=== PATIENT | female | born 1970 | race Caucasian/White ===

== ENCOUNTER 2019-02-21 09:12 | Emergency (ER) | payer OTHER ==
[2019-02-21 09:20] VITALS: BP 139/96; PULSE 86; TEMP 98.1; BMI 26.6
--- NOTE | 2019-02-21 09:24 | PDOC ---
Attending Attestation - Resident Resident Name: Jackelin Jain - ED Attending Attestation I have performed the following: I have examined & evaluated the patient, The case was reviewed & discussed with the resident, I agree w/resident's findings & plan, Exceptions are as noted - HPI HPI: 02/21/19 09:20 49 year old female c/ hx of hypothyroidism p/w left ankle twisting. Pt was walking in high heels yesterday. Accidentally inverted her left ankle. Was ambulatory afterwards. However, this morning, left ankle was more painful and swollen. Denies numbness, weakness. Came into ED with antalgic gait. - Physicial Exam PE: 02/21/19 09:21 GENERAL: Awake, alert, and fully oriented, in no acute distress HEAD: No signs of trauma EYES: EOMI, sclera anicteric, conjunctiva clear ENT: Auricles normal inspection, hearing grossly normal, nares patent, Moist mucosa NECK: Normal ROM, supple EXTREMITIES: LUE: No tenderness elicited along the left calf, tibia-fibula Compartments soft. Edema and swelling noted to left lateral malleolus. No joint instability appreciated. Able to range but with pain. No tenderness at the feet. 2+ DP pulse. Sensation intact throughout the lower extremity. Able to wiggle toes. NEUROLOGICAL: Cranial nerves II through XII grossly intact. Normal speech, normal gait SKIN: Warm, Dry, normal turgor, no rashes or lesions noted. - Medical Decision Making 02/21/19 09:24 Vital Signs Temp Pulse Resp BP Pulse Ox 98.1 F 86 18 139/96 100 02/21/19 09:12 02/21/19 09:12 02/21/19 09:12 02/21/19 09:12 02/21/19 09:12 Impression: Left ankle sprain. However, obtain xray to r/o fracture. Elevation, ICE, JENN Wrap. If no fracture but persistent pain > 1 week, follow up outpatient with orthopedics. 02/21/19 09:51 Ankle xray reviewed by me, pending official read. No fracture. RICE therapy. Give crutches. Outpatient management.
--- NOTE | 2019-02-21 09:24 | PDOC ---
History of Present Illness - General Chief Complaint: Injury Stated Complaint: LEFT ANKLE INJURY Time Seen by Provider: 02/21/19 09:15 - History of Present Illness Initial Comments: 49 year old female with PMH of hypothyroidism presenting with left ankle pain after a mechanical trip and fall yesterday. States that she was walking down the stairs yesterday and tripped, inverting her ankle but did not fall. States that she was able to walk on it with minor difficulty but it has become more swollen and painful since then. She zhang not iced it or used any over the counter analgesics. She is able to walk on it currently with moderate pain on ambulation. Denies fevers, chills, nausea, vomiting, diarrhea, chest pain, SOB or other symptoms. 02/21/19 09:19 Past History - Past Medical History Allergies/Adverse Reactions: Allergies Allergy/AdvReac Type Severity Reaction Status Date / Time No Known Allergies Allergy Verified 02/21/19 09:12 Home Medications: Ambulatory Orders NK [No Known Home Medication] 02/21/19 Thyroid Disease: Yes (hypo) - Surgical History Cholecystectomy: Yes - Suicide/Smoking/Psychosocial Hx Smoking Status: No Smoking History: Never smoked Number of Cigarettes Smoked Daily: 0 Review of Systems - Review of Systems Constitutional: No: Chills, Diaphoresis, Fever, Loss of Appetite HEENTM: No: Blurred Vision, Tearing Respiratory: No: Cough, Shortness of Breath Cardiac (ROS): No: Irregular Heart Rate, Lightheadedness, Palpitations, Syncope : No: Dysuria, Discharge, Frequency, Flank Pain Musculoskeletal: Yes: Joint Pain, Joint Swelling Integumentary: No: Change in Color, Dryness Neurological: No: Numbness, Paresthesia Hematologic/Lymphatic: No: Blood Clots, Easy Bleeding *Physical Exam - Physical Exam General Appearance: Yes: Nourished, Appropriately Dressed. No: Apparent Distress HEENT: positive: EOMI, CASEY, Normal Voice Respiratory/Chest: positive: Lungs Clear, Normal Breath Sounds. negative: Respiratory Distress, Accessory Muscle Use Cardiovascular: positive: Regular Rhythm, Regular Rate Gastrointestinal/Abdominal: positive: Normal Bowel Sounds, Flat, Soft. negative : Tender Lymphatic: negative: Adenopathy, Tenderness Musculoskeletal: positive: Decreased Range of Motion (slightly decreased medial and lateral motion of the left ankle). negative: Normal Inspection (tenderness over lateral and medial maleoli) Extremity: positive: Normal Capillary Refill, Tender. negative: Normal Inspection, Normal Range of Motion Integumentary: positive: Normal Color, Dry, Warm Neurologic: positive: Fully Oriented, Alert, Normal Mood/Affect, Normal Response , Motor Strength 5/5 Medical Decision Making - Medical Decision Making 49 year old female with PMH of hypothyroidism presenting with left ankle pain worsening since a mechanical trip yesterday. Patient still has pain with weight bearing in our ED so will peform XR per [place] [facility] rules. 02/21/19 09:25 XR negative for fracture. Patient given RICE precautions and follow up instructions (With Dr. Watkins), crutches, haris bandage, and return precautions. 02/21/19 09:55 *DC/Admit/Observation/Transfer Diagnosis at time of Disposition: Left ankle sprain Qualifiers: Encounter type: initial encounter Involved ligament of ankle: unspecified ligament Qualified Code(s): S93.402A - Sprain of unspecified ligament of left ankle, initial encounter - Discharge Dispostion Disposition: HOME Condition at time of disposition: Improved Decision to Admit order: No - Referrals Referrals: Devorah Samson [Primary Care Provider] - Donnell Watkins MD [Staff Physician] - - Patient Instructions Printed Discharge Instructions: Ankle Sprain Additional Instructions: Please use ICE 3-4 times per day for 20-30 minutes at a time on your ankle. 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 Please elevate your ankle when sitting down and try to sit down at least once every 2 hours. Please use Tylenol or Motrin for the pain every 4-6 hours as needed. Please follow up with your PCP if you have any further questions. If you notice any more issues that do not resolve with ICE or Tylenol/ Motrin then please return to the ED. - Post Discharge Activity
== END 2019-02-21 10:05 | disposition home or self-care (01) ==
LOC: FER 09:12
DX: S93.402A Sprain of unspecified ligament of left ankle, initial encounter (principal); X50.9XXA Other and unspecified overexertion or strenuous movements or postures, initial encounter; Y93.01 Activity, walking, marching and hiking; Y92.9 Unspecified place or not applicable; E03.9 Hypothyroidism, unspecified
CPT/HCPCS: 73610-TC-LT-FY; 99283-25

== ENCOUNTER 2021-07-24 04:57 | Day surgery (SDC) | payer OTHER, BC ==
[2021-07-22 13:26] VITALS: BMI 26.2
[2021-07-24 11:26] VITALS: TEMP 97.8
[2021-07-24 12:26] VITALS: BP 106/62; PULSE 68
== END 2021-07-24 12:30 | disposition home or self-care (01) ==
LOC: JASU-ENDO 04:57
PROVIDERS: ATTEND Internal Medicine Gastroenterology
PROC: 0DB68ZX Excision of Stomach, Via Natural or Artificial Opening Endoscopic, Diagnostic (ICD-10-PCS; 2021-07-24)
PROC: 0DB98ZX Excision of Duodenum, Via Natural or Artificial Opening Endoscopic, Diagnostic (ICD-10-PCS; principal; 2021-07-24 10:55)
DX: K29.00 Acute gastritis without bleeding (principal); K31.7 Polyp of stomach and duodenum

== ENCOUNTER 2021-10-28 17:33 | Emergency (ER) | payer OTHER, BC ==
[2021-10-28 17:50] VITALS: BP 133/76; PULSE 106; TEMP 97.8; BMI 25.9
== END 2021-10-28 19:03 | disposition home or self-care (01) ==
LOC: JER 17:33
DX: Z20.822 Contact with and (suspected) exposure to COVID-19 (principal)
CPT/HCPCS: 99283-25; C9803; U0003; U0005

== ENCOUNTER 2022-08-26 04:35 | Day surgery (SDC) | payer OTHER, BC ==
[2022-08-22 13:57] VITALS: BMI 26.2
[2022-08-26] MEDS ORDERED: BUPIVACAINE HCL/PF 0.75% 10 ML VIAL ONE (07:40)
[2022-08-26] MEDS ORDERED: LIDOCAINE HCL/PF 1% SDV 5ML VIAL ONE (07:40)
[2022-08-26] MEDS ORDERED: LIDOCAINE HCL 1% PRESERVATIVE FREE - 30ML VIAL IJ ONE (14:32)
[2022-08-26] MEDS ORDERED: BUPIVACAINE HCL/PF 0.75% 10 ML VIAL PNB ONE (14:32)
[2022-08-26 16:45] VITALS: BP 109/81; PULSE 77; RESP 16; TEMP 97.5
== END 2022-08-26 15:15 | disposition home or self-care (01) ==
LOC: JASU-SURG 04:35
PROVIDERS: ATTEND Pain Medicine Pain Medicine
PROC: 3E0T33Z Introduction of Anti-inflammatory into Peripheral Nerves and Plexi, Percutaneous Approach (ICD-10-PCS; 2022-08-26)
PROC: 3E0T3BZ Introduction of Anesthetic Agent into Peripheral Nerves and Plexi, Percutaneous Approach (ICD-10-PCS; principal; 2022-08-26 12:50)
DX: M47.816 Spondylosis without myelopathy or radiculopathy, lumbar region (principal)
CPT/HCPCS: 76000-TC-FY

== ENCOUNTER 2024-01-22 08:33 | Emergency (ER) | payer OTHER, BC ==
[2024-01-22 08:42] VITALS: RESP 20; BMI 26.2
[2024-01-22] MEDS: SODIUM CHLORIDE 0.9% 1000 ML INFUS.BAG IV ONE (10:01)
[2024-01-22 10:10] LABS: HEMATOCRIT 42.9 % (32.4-45.2); HEMOGLOBIN 14.4 G/dL (10.7-15.3); MCHC 33.5 g/dl (32.0-36.0); MEAN CELL VOLUME 92.5 fl (80-96); MEAN PLT VOLUME 8.3 fl (7.5-11.1); PLATELET COUNT 223.5 10^3/uL (134-434); RBC 4.64 10^6/uL (3.60-5.2); RDW 13.6 % (11.6-15.6); WHITE BLOOD COUNT 7.5 10^3/uL (4.0-10.8)
[2024-01-22 10:22] LABS: INR 0.98 (0.83-1.09); PROTHROMBIN TIME (PATIENT) 11.4 SEC (9.7-13.0)
[2024-01-22 10:25] LABS: ACTIVATED PTT 30.5 SECONDS (25.2-36.5)
[2024-01-22 10:34] LABS: ALBUMIN 4.7 g/dl (3.4-5.0); ALK PHOS 72 U/L (45-117); ANION GAP 9 mmol/L (4-13); BILIRUBIN,TOTAL 0.8 mg/dl (0.2-1); CALCIUM 9.8 mg/dl (8.5-10.1); CHLORIDE 103 mmol/L (98-107); CO2 28 mmol/L (21-32); CREATININE 0.8 mg/dl (0.6-1.3); GLUCOSE,RANDOM 101 mg/dl (74-106); SGOT/AST 30 U/L (15-37); SGPT/ALT 52 U/L (7-52); SODIUM 140 mmol/L (136-145); TOT PROT 7.8 g/dl (6.4-8.2)
[2024-01-22] MEDS ORDERED: LIDOCAINE 2.5%/PRILOCAINE 2.5% (5 Gram/TUBE) TP ONE (10:45)
[2024-01-22 12:05] LABS: PLATELET ESTIMATE ADEQUATE
[2024-01-22 16:27] VITALS: BP 146/80; PULSE 84; TEMP 98
== END 2024-01-22 17:38 | disposition admitted as inpatient to this hospital (09) ==
LOC: FER 08:33 → FM/S 13:11 → UNDOADMOB 13:11
DX: R00.2 Palpitations (principal); R53.1 Weakness; R20.0 Anesthesia of skin
CPT/HCPCS: 36415; 70450-TC; 70551-TC; 71046-TC-FY; 80053; 81003; 84443; 84484; 85027; 85610; 85730; 87086; 93005; 99285-25